=== PATIENT | male | born 1970 | race American Indian/Alaskan Native ===

== ENCOUNTER 2021-10-03 09:59 | Emergency (ER) | payer SELFPAY ==
--- NOTE | 2021-10-03 11:28 | Emergency Department Report ---
ED Syncope HPI - General Chief Complaint: Syncope Stated Complaint: BLACKED OUT HIT HEAD 09/28 Time Seen by Provider: 10/03/21 10:48 - History of Present Illness Initial Comments: 51-year-old male, history of gastric ulcers, presents to ED following syncopal episode 5 days ago. Patient is complaining of headache at this time. He states when he passed out he hit his head. Patient states he was at a friend's house. He denies smoking marijuana. Patient states he stood up from sitting position, began to feel dizzy, then passed out. Patient's friend reported to him that he hit his head when he fell. Patient denies any headache prior to the fall. Has any chest pain, shortness of breath, recent illness. Patient denies any nausea or vomiting since his head injury, only complaint is headache. Patient reports he gets dizzy spells often, this is the first time he passed out. Timing/Prior Episodes: no prior history Precipitating Factors: Positive: lightheadedness Context: standing Loss of Consciousness: brief (seconds) Current Symptoms: back to normal, headache. denies: chest pain, dizziness - Related Data Allergies/Adverse Reactions: Allergies No Known Allergies Allergy (Verified 10/03/21 10:03) Home Medications: Ambulatory Orders Naproxen [Naprosyn] 500 mg PO BID #20 tablet 10/03/21 ED Review of Systems ROS: Stated complaint: BLACKED OUT HIT HEAD 09/28 Other details as noted in HPI Comment: All other systems reviewed and negative Constitutional: denies: fever Respiratory: denies: shortness of breath Cardiovascular: denies: chest pain Gastrointestinal: denies: abdominal pain, nausea, vomiting, diarrhea Neurological: headache. denies: weakness, numbness ED Past Medical Hx - Medications Home Medications: Home Medications Medication Instructions Recorded Confirmed Last Taken Type Naproxen [Naprosyn] 500 mg PO BID #20 tablet 10/03/21 Unknown Rx ED Physical Exam - General Limitations: No Limitations General appearance: alert, in no apparent distress - Head Head exam: Present: atraumatic, normocephalic - Eye Eye exam: Present: normal appearance, PERRL, EOMI - ENT ENT exam: Present: mucous membranes moist - Neck Neck exam: Present: normal inspection - Respiratory Respiratory exam: Present: normal lung sounds bilaterally. Absent: respiratory distress - Cardiovascular Cardiovascular Exam: Present: regular rate, normal rhythm - GI/Abdominal GI/Abdominal exam: Present: soft. Absent: distended, tenderness - Extremities Exam Extremities exam: Present: normal inspection - Neurological Exam Neurological exam: Present: alert, oriented X3, CN II-XII intact. Absent: motor sensory deficit - Psychiatric Psychiatric exam: Present: normal affect, normal mood - Skin Skin exam: Present: warm, dry, intact, normal color ED Course Vital Signs 10/03/21 10/03/21 10:01 12:07 Temperature 98 F Pulse Rate 82 Pulse Rate [ 84 Lying] Pulse Rate [ 82 Sitting] Pulse Rate [ 86 Standing] Respiratory 14 Rate Blood Pressure 124/74 [Left] Blood Pressure 130/76 [Lying] Blood Pressure 122/71 [Sitting] Blood Pressure 132/75 [Standing] O2 Sat by Pulse 100 Oximetry ED Medical Decision Making - Lab Data Result diagrams: 10/03/21 11:59 10/03/21 11:59 - EKG Data -: EKG Interpreted by Pr EKG shows normal: sinus rhythm, axis, intervals, QRS complexes, ST-T waves Rate: normal - EKG Data Interpretation: no acute changes - Radiology Data Radiology results: report reviewed, image reviewed - Medical Decision Making 51-year-old male presents to ED for headache following syncopal episode 5 days ago. No neuro deficits on exam. Labs and EKG unremarkable. CT head negative for any acute findings. Patient not orthostatic. He will be discharged at this time. Outpatient follow-up advised, return precautions given. - Differential Diagnosis Intracranial abnormality, dehydration, arrhythmia Critical care attestation.: If time is entered above; I have spent that time in minutes in the direct care of this critically ill patient, excluding procedure time. ED Disposition Clinical Impression: Syncope, Closed head injury Disposition: HOME / SELF CARE / HOMELESS Is pt being admited?: No Condition: Stable Instructions: Head Injury, Adult, [id number], Syncope, [id number], Syncope (ED) Prescriptions: Naproxen [Naprosyn] 500 mg PO BID #20 tablet Referrals: ELIZABETH STILL MD [Primary Care Provider] - 3-5 Days [facility] [Provider Group] - 3-5 Days FELICIANO WEEKS MD [Staff Physician] - 3-5 Days Time of Disposition: 13:59
--- NOTE | 2021-10-03 11:57 | XRay Report ---
CHEST 2 VIEWS INDICATION / CLINICAL INFORMATION: syncope. COMPARISON: None available. FINDINGS: SUPPORT DEVICES: None. HEART / MEDIASTINUM: No significant abnormality. LUNGS / PLEURA: Lungs are hyperinflated with cystic changes at lung apices. No focal airspace disease . No pneumothorax. ADDITIONAL FINDINGS: No significant additional findings. IMPRESSION: 1. No acute abnormality. 2. COPD changes. Signer Name: Darnell Raya MD Signed: 10/03/2021 11:53 AM Workstation Name: [email or web address]
[2021-10-03 12:09] VITALS: BP 122/71
[2021-10-03 12:28] LABS: Basophils # (Auto) 0.1 K/mm3 (0.0-0.1); Basophils % (Auto) 0.8 % (0.0-1.8); Eosinophils # (Auto) 0.2 K/mm3 (0.0-0.4); Eosinophils % (Auto) 3.1 % (0.0-4.3); Hematocrit 45.2 % (35.5-45.6); Hemoglobin 14.7 gm/dl (11.8-15.2); Lymphocytes # (Auto) 1.3 K/mm3 (1.2-5.4); Lymphocytes % (Auto) 18.3 % (13.4-35.0); Mean Corpuscular HGB Conc 32 % (32-34); Mean Corpuscular Volume 88 fl (84-94); Monocytes # (Auto) 0.5 K/mm3 (0.0-0.8); Monocytes % (Auto) 6.5 % (0.0-7.3); Platelet Count 323 K/mm3 (140-440); Red Blood Count 5.16 M/mm3 (3.65-5.03); Red Cell Distribution Width 14.3 % (13.2-15.2)
--- NOTE | 2021-10-03 12:38 | Cat Scan Report ---
CT BRAIN: 10/03/2021 INDICATION / CLINICAL INFORMATION: syncope, fall, injury. COMPARISON: None available. FINDINGS: BRAIN/INTRACRANIAL STRUCTURES: Unenhanced CT images of the brain demonstrate no evidence of acute int racranial abnormality. Ventricles and sulci are normal in size and shape. There is no evidence of intracranial hemorrhage or mass. There are no abnormal extra-axial fluid emily ections. EXTRACRANIAL STRUCTURES: Unremarkable. Incidental note is made of a prominent high midline frontal scalp lipoma. IMPRESSION: No acute abnormality. All CT scans at this location are performed using dose reduction to ALARA by means of automated expos ure control. Signer Name: Cliff Capellan MD Signed: 10/03/2021 12:34 PM Workstation Name: [id number]
[2021-10-03 12:48] LABS: BUN/Creatinine Ratio 10; Blood Urea Nitrogen 8 mg/dL (9-20); Calcium 9.1 mg/dL (8.4-10.2); Hemolysis Index 9
[2021-10-03 12:51] LABS: Alanine Aminotransferase 25 units/L (7-56); Albumin 4.3 g/dL (3.9-5)
[2021-10-03 12:52] LABS: Bilirubin,Direct < 0.2 mg/dL (0-0.2)
--- NOTE | 2021-10-04 10:41 | Electrocardiograph Report ---
[facility] Test Date: 2021-10-03 Test Time: 11:29:58 Pat Name: ROSE MARY CARLTON Department: Room: Gender: M Administration Specialist: MUKUND : 1970 Requested By: TIMOTHY GONSALES Order Number: [id number] Reading MD: Adeel Givens Measurements Intervals [place] Rate: 66 P: 90 [place]: 133 QRS: 24 QRSD: 73 T: 61 QT: 374 QTc: 392 Interpretive Statements Sinus rhythm Anterior infarct, old No previous ECG available for comparison Electronically Signed On 10-04-2021 10:41:43 EST by Adeel Givens
== END 2021-10-03 14:19 | disposition home or self-care (01) ==
LOC: ED 09:59
DX: S09.90XA Unspecified injury of head, initial encounter (principal); R55 Syncope and collapse; W18.39XA Other fall on same level, initial encounter; Y93.89 Activity, other specified; Y92.89 Other specified places as the place of occurrence of the external cause; Y99.8 Other external cause status
CPT/HCPCS: 36415; 70450; 71046; 80048; 80076; 84484; 85025; 93005; 99284